=== PATIENT | female | born 1965 | race Caucasian/White ===

== ENCOUNTER 2017-08-22 23:37 | Emergency (ER) | payer OTHER ==
[~2017-08-22] VITALS: Ht 157.5 cm; Wt 66.0 kg
[~2017-08-22 23:37] MED LIST: IBUPROFEN 600MG TABLET ONE
[2017-08-23] MEDS ORDERED: IBUPROFEN 600MG TABLET PO ONE
[2017-08-23] MEDS ORDERED: KETOROLAC 60MG/2ML VIAL IM ONE (03:45)
[2017-08-23 04:00] VITALS: BP 108/68
== END 2017-08-23 04:42 | disposition home or self-care (01) ==
LOC: ER 23:37
DX: S93.402A Sprain of unspecified ligament of left ankle, initial encounter (principal); X58.XXXA Exposure to other specified factors, initial encounter; Y93.89 Activity, other specified; Y92.89 Other specified places as the place of occurrence of the external cause
CPT/HCPCS: 73610; 96372; 99284; J1885; Z7610